=== PATIENT | female | born 1955 | race Caucasian/White ===

== ENCOUNTER 2016-09-25 10:34 | Emergency (ER) | payer OTHER ==
[~2016-09-25] VITALS: Ht 167.6 cm; Wt 80.8 kg
[~2016-09-25 10:34] MED LIST: CIPRO500 MG PO; LEVOXYL100 MCG PO; LISINOPRIL10 MG PO; XANAX0.25 MG PO; ZOCOR20 MG PO; ZOLOFT50 MG PO
[2016-09-25] MEDS ORDERED: ULTRAM50 MG PO (18:30)
[2016-09-25 18:47] VITALS: BP 142/98
== END 2016-09-25 18:49 | disposition home or self-care (01) ==
LOC: EME 10:34
DX: M26.609 Unspecified temporomandibular joint disorder, unspecified side (principal)
CPT/HCPCS: 70336; 99281; 99283